=== PATIENT | female | born 1960 | race African-American/Black ===

== ENCOUNTER 2017-04-12 09:17 | Emergency (ER) | payer MEDICAID ==
[~2017-04-12] VITALS: Ht 167.6 cm; Wt 114.0 kg
[2017-04-12] MEDS ORDERED: LISI10TA5 PO (09:30)
[2017-04-12] MEDS ORDERED: ACYC200C PO (09:30)
[2017-04-12] MEDS ORDERED: TRAM50TA3 PO (09:30)
[2017-04-12] MEDS ORDERED: ASPI-1159 PO (09:30)
[2017-04-12] MEDS ORDERED: NAPR-681 PO (09:30)
[2017-04-12] MEDS ORDERED: FURO20TA4 PO (09:30)
[2017-04-12] MEDS ORDERED: HYDR-523 PO (09:30)
[2017-04-12] MEDS ORDERED: SODIUM CHLORIDE 0.9% 1,000 ML IV ONE (12:58)
[2017-04-12] MEDS ORDERED: FAMOTIDINE 20MG/2ML VIAL IV STA (12:58)
[2017-04-12] MEDS ORDERED: ONDANSETRON HCL 4MG/2ML VIAL IV STA (12:58)
[2017-04-12] MEDS ORDERED: MORPHINE SULFATE 4 MG/ML CPJ (NOT FOR IM USE) IV ONE (13:00)
[2017-04-12 13:13] LABS: BASOPHILS % 0.3 % (0.0-2.0); EOSINOPHILS % 0.5 % (0.0-5.0); HEMATOCRIT. 40.8 % (36.0-48.0); HEMOGLOBIN. 13.5 g/dL (12.0-16.0); LYMPHOCYTES % 15.4 % (20.0-50.0); MEAN CORPUSCULAR HEMOGLOBIN 28.2 pg (28.0-32.0); MEAN CORPUSCULAR VOLUME 85.2 fL (81.0-99.0); MEAN PLATELET VOLUME 10.1 fl (7.4-10.4); MONOCYTES % 7.5 % (2.0-8.0); NEUTROPHILS % 76.3 % (40.0-76.0); PLATELET 169 x1000/uL (130-400); RED BLOOD CELL COUNT 4.79 mill/uL (4.2-5.4); RED CELL DISTRIBUTION WIDTH 17.1 % (11.6-14.6)
[2017-04-12 13:19] LABS: CHLORIDE 104 mEq/L (98-107)
[2017-04-12 13:28] LABS: CARBON DIOXIDE 27 mEq/L (21-32)
[2017-04-12 14:06] LABS: CLARITY URINE CLEAR (CLEAR); COLOR URINE YELLOW (YELLOW); GLUCOSE URINE NEGATIVE (NEGATIVE); KETONES URINE TRACE (NEGATIVE); LEUKOCYTE ESTERASE URINE NEGATIVE (NEGATIVE); NITRITE URINE NEGATIVE (NEGATIVE); OCCULT BLOOD URINE NEGATIVE (NEGATIVE); PH URINE 5.5 (4.5-8.0); PROTEIN URINE NEGATIVE (NEGATIVE); SPECIFIC GRAVITY URINE 1.019 (1.005-1.030)
[2017-04-12] MEDS ORDERED: KETOROLAC 30MG/ML VIAL IV ONE (14:30)
[2017-04-12 14:56] VITALS: BP 152/96
== END 2017-04-12 15:02 | disposition home or self-care (01) ==
LOC: ER 09:59
DX: K80.20 Calculus of gallbladder without cholecystitis without obstruction (principal); M19.90 Unspecified osteoarthritis, unspecified site; I11.9 Hypertensive heart disease without heart failure; I25.2 Old myocardial infarction; Z79.01 Long term (current) use of anticoagulants; Z98.890 Other specified postprocedural states; Z88.0 Allergy status to penicillin; Z79.82 Long term (current) use of aspirin; Z98.51 Tubal ligation status
CPT/HCPCS: 36415; 76705; 80053; 81003; 83690; 85025; 96361; 96374; 96375; 99285; J1885; J2270; J2405; J3490; J7030